=== PATIENT | female | born 1950 | race Two or more races ===

== ENCOUNTER 2021-09-16 09:00 | Inpatient (IN) | payer OTHER ==
[~2021-09-16] VITALS: Ht 157.5 cm; Wt 68.0 kg
[~2021-09-16 09:00] MED LIST: BRILINTA90 MG PO; COZAAR100 MG PO; CRESTOR40 MG PO; ECOTRIN81 MG PO; FOSAMAX70 MG PO; GABAPENTIN100 M2 PO; HUMALOG100 UNIT/2; LANTUS SOL100 UNIT/1; TOPROL XL25 M1 PO
[2021-09-16] MEDS ORDERED: NORVASC5 MG PO (12:40)
[2021-09-16] MEDS ORDERED: CLONAZEPAM0.5 MG PO (12:40)
[2021-09-21] MEDS ORDERED: COLACE100 MG PO (07:29)
[2021-09-21] MEDS ORDERED: MEDROLPACK PO (07:30)
[2021-09-21] MEDS ORDERED: PERCOCET 5-3251 EACH PO (07:30)
[2021-09-21] MEDS ORDERED: AMOX-CLAV 875-1 EACH PO (07:30)
[2021-09-21] MEDS ORDERED: LOSARTAN-HCTZ1 EAC2 (07:52)
[2021-09-21] MEDS ORDERED: ESCITALOPRAM OXA5 MG (07:52)
[2021-09-21] MEDS ORDERED: FENOFIBRATE160 MG (07:52)
[2021-09-21] MEDS ORDERED: ALENDRONATE SOD70 MG (07:52)
[2021-09-21] MEDS ORDERED: PANTOPRAZOLE SO40 MG (07:52)
== END 2021-09-22 10:57 | disposition home or self-care (01) | DRG 473 ==
LOC: SURH 09-21 04:56 → O/R 09-21 04:56 → SURH 09-21 07:00
PROVIDERS: ADMIT Orthopaedic Surgery Orthopaedic Surgery of the Spine; ATTEND Orthopaedic Surgery Orthopaedic Surgery of the Spine
PROC: 0RT30ZZ Resection of Cervical Vertebral Disc, Open Approach (ICD-10-PCS; 2021-09-21)
PROC: 0PB30ZZ Excision of Cervical Vertebra, Open Approach (ICD-10-PCS; 2021-09-21)
PROC: 07DS0ZZ Extraction of Vertebral Bone Marrow, Open Approach (ICD-10-PCS; 2021-09-21)
PROC: 0RG20A0 Fusion of 2 or more Cervical Vertebral Joints with Interbody Fusion Device, Anterior Approach, Anterior Column, Open Approach (ICD-10-PCS; principal; 2021-09-21 07:00)
DX: M50.022 Cervical disc disorder at C5-C6 level with myelopathy (principal); M48.02 Spinal stenosis, cervical region; I10 Essential (primary) hypertension; E11.9 Type 2 diabetes mellitus without complications; Z79.4 Long term (current) use of insulin